=== PATIENT | male | born 1965 | race Two or more races ===

== ENCOUNTER 2024-06-15 15:30 | Outpatient (RCR) | payer BC, SELFPAY ==
--- NOTE | 2024-05-19 15:52 | PT.OIERPT ---
PT OP Initial Eval Patient Information Outpatient Physical Therapy Treatment Date: 05/19/24 Visit Reasons: Pain in RT foot/Ankle Medical Diagnosis: Right Ankle Pain Treatment Dx #1: Right Ankle Pain Start of Care: 05/19/24 Date of Onset: 2 months ago Smoking Status Smoking Status: Never smoker Initial Assessment Subjective: Pt is a 59 y/o male reports of right ankle inversion sprained ~ 2 months ago. Pt still mild pain (2/10) with intermittent swelling around the ankle. Pt has limitation with prolonged walking, standing, balance, uneven surfaces, and work duties. Objective: Right Ankle AROM: all motions are WNL with pain into end range eversion Right Ankle MMTs: grossly 4/5 Right Hip MMTs: grossly 4-/5 SLB: 15 sec Palpation: TTP ATFL and calcaneofibular ligament Assessment: Pt demonstrate right ankle pain with mild instability leading to difficulty with ADLs. Pt will benefit from physical therapy to increase ROM, strength, and work on stability Short Term and Jail Goals 1) Increase right ankle AROM WNL in 6 wks to be able to perform work duties 2) Decrease ankle pain to 1/10 in 6 wks to be able to stand more than 30 mins 3) Increase right hip MMTs grossly to 4/5 in 6 wks to be able to walk more than 30 mins 4) Increase right ankle MMTs grossly to 4+/5 in 6 wks to be able to perform recreational activities 5) Indep with HEP Treatment Plan 1) Manual Therapy 2) Therapeutic Activities 3) Therapeutic Exercises 4) Modalities (ice, heat) 5) Balance Training Frequency and Duration: 2 x wk for 6 wks Certification Dates: 05/19/24 to 08/18/24 Procedure Charges OP PT Eval Mod Complex 30 minutes: Yes
--- NOTE | 2024-05-27 15:58 | PT.ODAYNRPT ---
PT Outpatient Daily Note OP Daily Note Outpatient Physical Therapy Treatment Date: 05/27/24 Visit Reasons: Pain in RT foot/Ankle Subjective: Pt reports ankle is slowly getting better since his injury but continues to have occasional pain on lateral ankle. Objective: Please see flow sheet for ther ex list. Assessment: Pt demonstrated knee ER with ankle 4 way exercise, corrects post verbal cues and demonstrations. Plan: Continue with pOC, assess response to treatment. Length of Time (minutes) of Treatment: 30 Minutes Procedure Charges Therapeutic Exercise 30 minutes: Yes
--- NOTE | 2024-06-07 16:22 | PT.ODAYNRPT ---
PT Outpatient Daily Note OP Daily Note Outpatient Physical Therapy Treatment Date: 06/07/24 Visit Reasons: Pain in RT foot/Ankle Subjective: Pt reports R foot is doing better. As per pt he has been walking more, has done a 2 mile walk. Objective: Please see flow sheet for ther ex list Assessment: Pt presents with improved symptoms allowing for interventions progression. Plan: Continue with pOC. Length of Time (minutes) of Treatment: 30 Minutes Procedure Charges Therapeutic Exercise 30 minutes: Yes
--- NOTE | 2024-06-15 15:56 | PT.ODAYNRPT ---
PT Outpatient Daily Note OP Daily Note Outpatient Physical Therapy Treatment Date: 06/15/24 Visit Reasons: Pain in RT foot/Ankle Subjective: Pt's foot and ankle is better. Objective: Please see flow chart for list of ther ex performed Assessment: tolerate exercises with minimal pain and improved balance Plan: Continue with PT Length of Time (minutes) of Treatment: 30 Minutes Procedure Charges Therapeutic Exercise 30 minutes: Yes
== END 2024-06-15 23:59 | disposition home or self-care (01) ==
LOC: CPTX 15:30
PROVIDERS: PCP Family Medicine; Referring Provider Family Medicine; Visit Provider Family Medicine
DX: M25.571 Pain in right ankle and joints of right foot (principal); M25.371 Other instability, right ankle; R26.2 Difficulty in walking, not elsewhere classified; S93.401D Sprain of unspecified ligament of right ankle, subsequent encounter; X58.XXXD Exposure to other specified factors, subsequent encounter
CPT/HCPCS: 97110; 97162

== ENCOUNTER 2024-07-14 16:00 | Outpatient (RCR) | payer BC, SELFPAY ==
--- NOTE | 2024-06-24 15:52 | PT.ODAYNRPT ---
PT Outpatient Daily Note OP Daily Note Outpatient Physical Therapy Treatment Date: 06/24/24 Visit Reasons: right foot pain Subjective: Pt reports ankle is doing better. Objective: Please see flow sheet for ther ex list. Assessment: Added interventions, pt tolerated well indicating progress. Plan: Continue with pOC. Length of Time (minutes) of Treatment: 30 Minutes Procedure Charges Therapeutic Exercise 30 minutes: Yes
--- NOTE | 2024-07-05 15:56 | PT.ODAYNRPT ---
PT Outpatient Daily Note OP Daily Note Outpatient Physical Therapy Treatment Date: 07/05/24 Visit Reasons: right foot pain Subjective: Pt's right foot and ankle is better. Pt does not have much pain. Pt has been able to walk up to 2 miles every other day Objective: Please see flow chart for list of ther ex performed Assessment: tolerate exercises with minimal pain. Difficulty with balance exercises due to decrease ankle stability Plan: Continue with PT Length of Time (minutes) of Treatment: 30 Minutes Procedure Charges Therapeutic Exercise 30 minutes: Yes
--- NOTE | 2024-07-07 15:56 | PT.ODAYNRPT ---
PT Outpatient Daily Note OP Daily Note Outpatient Physical Therapy Treatment Date: 07/07/24 Visit Reasons: right foot pain Subjective: Pt reports R foot is feeling better, was able to jog on/off for about 1/2 mile. Objective: Please see flow sheet for ther ex list. Assessment: Pt presents in clinic with improved symptoms allowing for intervention progression. Plan: Continue with POC. Length of Time (minutes) of Treatment: 30 Minutes Procedure Charges Therapeutic Exercise 30 minutes: Yes
--- NOTE | 2024-07-14 16:12 | PT.ODAYNRPT ---
PT Outpatient Daily Note OP Daily Note Outpatient Physical Therapy Treatment Date: 07/14/24 Visit Reasons: right foot pain Subjective: Pt reports R ankle is doing better, has been going for walks. Objective: Please see flow sheet for ther ex list. Assessment: Progression of interventions completed with good tolerance. Pt demonstrates good knee positioning with forward lunges exercise. Plan: Continue with pOC. Length of Time (minutes) of Treatment: 30 Minutes Procedure Charges Therapeutic Exercise 30 minutes: Yes
== END 2024-07-16 23:59 | disposition home or self-care (01) ==
LOC: CPTX 16:00
PROVIDERS: PCP Family Medicine; Referring Provider Family Medicine; Visit Provider Family Medicine
DX: M25.571 Pain in right ankle and joints of right foot (principal); R26.2 Difficulty in walking, not elsewhere classified; R26.89 Other abnormalities of gait and mobility; M25.371 Other instability, right ankle
CPT/HCPCS: 97110

== ENCOUNTER 2024-08-03 15:30 | Outpatient (RCR) | payer BC, SELFPAY ==
--- NOTE | 2024-07-25 16:31 | PT.ODAYNRPT ---
PT Outpatient Daily Note OP Daily Note Outpatient Physical Therapy Treatment Date: 07/25/24 Visit Reasons: RT foot pain Subjective: Pt reports R foot is sore today, danced over the weekend and notices ankle swelled up a little. Objective: Please see flow sheet for ther ex list. Assessment: Regressed intervention to accommodate pain. Recommended pt to apply cold pack at home, pt denied cold pack in clinic. Plan: Continue with POC. Length of Time (minutes) of Treatment: 30 Minutes Procedure Charges Therapeutic Exercise 30 minutes: Yes
--- NOTE | 2024-07-27 15:51 | PT.ODAYNRPT ---
PT Outpatient Daily Note OP Daily Note Outpatient Physical Therapy Treatment Date: 07/27/24 Visit Reasons: RT foot pain Subjective: Pt's ankle and foot is feeling much better. Pt does not have any concerns. Objective: Please see flow chart for list of ther ex performed Assessment: tolerate exercises with minimal pain and demonstrate improvement with ankle stability with all balance exercises Plan: Continue with PT Length of Time (minutes) of Treatment: 30 Minutes Procedure Charges Therapeutic Exercise 30 minutes: Yes
--- NOTE | 2024-08-01 16:01 | PT.ODAYNRPT ---
PT Outpatient Daily Note OP Daily Note Outpatient Physical Therapy Treatment Date: 08/01/24 Visit Reasons: RT foot pain Subjective: Pt reports ankle is doing a lot better, can perform his daily activities and tasks. Objective: Please see flow sheet for ther ex list. Assessment: Pt demonstrates improved SLB, can hold on noncompliant surface for ~10 second with minimal sway no [employer]CH[employer]IAN. Plan: Assess for d/c note. Length of Time (minutes) of Treatment: 30 Minutes Procedure Charges Therapeutic Exercise 30 minutes: Yes
--- NOTE | 2024-08-03 15:43 | PTNOTE_ITS ---
PT OP Progress/Discharge Note Date of Service: 08/03/24 Progress Note/DC Note Progress Note/Discharge Note: DC Note Patient Information Visit Reasons: RT foot pain Medical Diagnosis: Right Ankle Pain Treatment Dx #1: Right Ankle Pain Service Discharge Date: 08/03/24 Status Subjective: Pt's ankle feels much better. Pt has been able to walk, stand, perform chores, work, and negotiate uneven surfaces.At this time Pt feels comfortable being rele ase from care with exercises to continue at home. Objective: Right Ankle AROM: all motions are WNL Right Ankle MMTs: grossly 4+/5 Right Hip MMTs: grossly 4/5 SLB: 30 sec Assessment: Pt demonstrate improved right ankle mobility, strength, and pain allowing him to resume ADLs with minimal limitation. Pt will no longer benefit from physical therapy due to meeting all set goals in therapy. Pt was instructed on HEP last session and educated to continue exercises to maintain overall mobility. Pt performed all exercises safely, thank you for your referrals. Plan: D/C home with HEP and follow up with MD GUTIERREZ Procedure Charges Therapeutic Exercise 30 minutes: Yes
== END 2024-08-15 23:59 | disposition home or self-care (01) ==
LOC: CPTX 15:30
PROVIDERS: PCP Family Medicine; Referring Provider Family Medicine; Visit Provider Family Medicine
DX: M25.571 Pain in right ankle and joints of right foot (principal); R26.2 Difficulty in walking, not elsewhere classified; R26.89 Other abnormalities of gait and mobility; M25.371 Other instability, right ankle; S93.401D Sprain of unspecified ligament of right ankle, subsequent encounter; X50.1XXD Overexertion from prolonged static or awkward postures, subsequent encounter
CPT/HCPCS: 97110